=== PATIENT | female | born 1975 | race Caucasian/White ===

== ENCOUNTER → 2020-06-02 15:53 | Outpatient (CLI) | payer OTHER, SELFPAY ==
--- NOTE | 2020-06-02 15:56 | DI.RAD.S_ITS ---
PROCEDURE: XR SACROILIAC JOINT MIN 3V INDICATIONS: LBP with bilateral hip pain and poss radiculopathy, SIJ TTP TECHNIQUE: 3 views of the sacroiliac joints were acquired. COMPARISON: None. FINDINGS: Bones: No bony erosions or ankylosis. No suspicious bony lesions. No fractures. Soft tissues: Overlying bowel gas pattern is normal. No suspicious soft tissue densities. IMPRESSION: There is a slight degree of hip joint space narrowing, but not to the degree that definite osteoarthritis or prior trauma is found minimal degenerative osteoarthritic changes seen at the inferior aspect of each sacroiliac joint, symmetric, and there is no sign of ankylosis. No trauma found. Dictated by: Tejinder Jones M.D. on 06/02/2020 at 17:12 Approved by: Tejinder Jones M.D. on 06/02/2020 at 17:14
--- NOTE | 2020-06-02 15:56 | DI.RAD.S_ITS ---
PROCEDURE: XR LUMBAR SPINE MIN 4V INDICATIONS: LBP with bilateral hip pain and poss radiculopathy, SIJ TTP TECHNIQUE: 5 views of the lumbar spine were acquired, including bilateral oblique views. COMPARISON: None. FINDINGS: Bones: 5 nonrib-bearing vertebrae are present. There is straightening of normal lumbar curvature. Minimal multilevel degenerative disc space narrowing. There is trace retrolisthesis of L1 on L2, L2 on L3, L3 on L4. There is a slight wedged appearance of the superior endplate of L5 without priors available for comparison. No vertebral body compression fractures. No suspicious bony lesions. Soft tissues: Overlying bowel gas pattern is normal. No suspicious soft tissue calcifications. Oblique images: No pars defects. IMPRESSION: Slight deformity of the superior endplate at L5 of indeterminate age. Dictated by: Chaya Zapien M.D. on 06/02/2020 at 17:39 Approved by: Chaya Zapien M.D. on 06/02/2020 at 17:40
--- NOTE | 2020-06-02 15:56 | DI.RAD.S_ITS ---
PROCEDURE: XR HIP W PEL IF DONE GUILLE MIN 4V INDICATIONS: LBP with bilateral hip pain and poss radiculopathy, SIJ TTP TECHNIQUE: AP pelvis with lateral view(s) of the bilateral hip(s). COMPARISON: None. FINDINGS: Bones: No fractures or dislocations. Pelvic ring appears intact. No suspicious bony lesions. Soft tissues: The visualized bowel gas pattern is normal. No suspicious soft tissue calcifications. IMPRESSION: Mild hip joint osteoarthritis slightly greater on the right than the left. No acute trauma found. Dictated by: Tejinder Jones M.D. on 06/02/2020 at 17:46 Approved by: Tejinder Jones M.D. on 06/02/2020 at 17:46
== END ==
PROVIDERS: PCP Registered Nurse Diabetes Educator; Referring Provider Registered Nurse Diabetes Educator; Visit Provider Registered Nurse Diabetes Educator
DX: M54.5 Low back pain (principal); M25.551 Pain in right hip; M25.552 Pain in left hip; M16.0 Bilateral primary osteoarthritis of hip; G89.29 Other chronic pain
CPT/HCPCS: 72110; 72202; 73522

== ENCOUNTER → 2021-09-15 06:52 | Outpatient (CLI) | payer OTHER, SELFPAY ==
--- NOTE | 2021-09-15 06:53 | DI.MG.S_ITS ---
BILATERAL DIGITAL SCREENING MAMMOGRAM 3D/2D WITH CAD: 09/15/2021 CLINICAL: Routine screening. Comparison is made to exam dated: 05/24/2017 mammogram - outside location. The tissue of both breasts is heterogeneously dense. This may lower the sensitivity of mammography. Current study was also evaluated with a Computer Aided Detection (CAD) system. No significant masses, calcifications, or other findings are seen in either breast. There has been no significant interval change. IMPRESSION: NEGATIVE There is no mammographic evidence of malignancy. A 1 year screening mammogram is recommended. This exam was interpreted at Station ID: [id number]. NOTE: For mammograms, a report in lay terms will be sent to the patient. Approximately 15% of breast malignancies will not be visualized mammographically. In the management of a palpable breast mass, a negative mammogram must not discourage biopsy of a clinically suspicious lesion. Electronically Signed By: Reyes mondragon/mario:09/15/2021 09:33:51 letter sent: Normal Exam ACR BI-RADS Category 1: Negative [id number]
== END ==
PROVIDERS: PCP Registered Nurse Diabetes Educator; Referring Provider Registered Nurse Diabetes Educator; Visit Provider Registered Nurse Diabetes Educator
DX: Z12.31 Encounter for screening mammogram for malignant neoplasm of breast (principal)
CPT/HCPCS: 77063; 77067

== ENCOUNTER → 2021-09-15 06:54 | Outpatient (CLI) | payer OTHER, SELFPAY ==
--- NOTE | 2021-09-15 06:54 | DI.MRI.S_ITS ---
PROCEDURE: MR LUMBAR SPINE WO CON INDICATIONS: eval lumbosacral radiculopathy/LBP TECHNIQUE: Noncontrast sagittal T1 spin echo and T2 fast echo, sagittal STIR, and T2 fast spin echo through the lumbar spine. Oblique axial T2 weighted images were obtained through the lower lumbar spine. In cases with scoliosis, additional coronal T2 fast spin echo may be performed. COMPARISON: [facility], CR, XR LUMBAR SPINE MIN 4V, 06/02/2020, 16:07. [facility], CR, XR SACROILIAC JOINT MIN 3V, 06/02/2020, 16:07. FINDINGS: Image quality: Excellent. Alignment and Curvature: There is normal bony alignment. Bone Marrow: Marrow is of normal overall signal. No acute vertebral body compression fractures. Minimal posterior wedging is seen L5 vertebral body, as previously demonstrated. Spinal Cord: Conus medullaris terminates at the L1 level. Visualized cord demonstrates normal signal and size. Paraspinous Soft Tissues: No paravertebral masses. T12-L1: Normal appearance. L1-L2: Normal appearance. L2-L3: Normal appearance. L3-L4: Normal appearance. L4-L5: [id number] loss of disc height and disc signal can be seen. Mild to moderate disc bulge is seen. There is a superimposed central disc protrusion. There is a focal annular fissure seen posteriorly. Mild facet joint hypertrophy is seen. There is moderate right-sided and mild left-sided neural foraminal narrowing. Mild to moderate central canal narrowing is seen. L5-S1: The disc height and disk signal are well-preserved. Mild facet joint hypertrophy is seen. Mild bilateral neural foraminal narrowing is seen. The central canal is widely patent. IMPRESSION: Focal lower lumbar spine degenerative changes are seen, which are worst at the L4-L5 level. Dictated by: Fransisco Watson M.D. on 09/15/2021 at 9:39 Approved by: Fransisco Watson M.D. on 09/15/2021 at 9:42
== END ==
PROVIDERS: PCP Registered Nurse Diabetes Educator; Referring Provider Registered Nurse Diabetes Educator; Visit Provider Registered Nurse Diabetes Educator
DX: M47.26 Other spondylosis with radiculopathy, lumbar region (principal); M47.27 Other spondylosis with radiculopathy, lumbosacral region; M54.50 Low back pain, unspecified; G89.29 Other chronic pain
CPT/HCPCS: 72148

== ENCOUNTER → 2022-07-31 13:42 | Outpatient (CLI) | payer OTHER, SELFPAY ==
--- NOTE | 2022-07-31 14:14 | DI.MRI.S_ITS ---
PROCEDURE: MR LUMBAR SPINE WO CON INDICATIONS: Spinal stenosis, lumbar region with neurogenic claudication TECHNIQUE: Noncontrast sagittal T1 spin echo and T2 fast echo, sagittal STIR, and T2 fast spin echo through the lumbar spine. In cases with scoliosis, additional coronal T2 fast spin echo may be performed. COMPARISON: [facility], CR, XR LUMBAR SPINE WITH OBLIQUES PLUS FLEXION EXTENSION, 07/11/2022, 16:05. [facility], , MR LUMBAR SPINE WO CON, 09/15/2021, 7:04. FINDINGS: Image quality: Excellent. Alignment and Curvature: Transitional element at L5. There is loss of normal lumbar lordosis. Bone Marrow: Marrow is of normal overall signal. No acute vertebral body compression fractures. Mild reactive signal within the endplates adjacent to the L4-L5 intervertebral disc. Spinal Cord: Conus medullaris terminates at the L1-L2 disc space level. Visualized cord demonstrates normal signal and size. Paraspinous Soft Tissues: No paravertebral masses. T12-L1: Normal appearance. L1-L2: Normal appearance. L2-L3: Normal appearance. L3-L4: Normal appearance. L4-L5: Mild disc height loss and desiccation. Mild diffuse disc bulge with superimposed left paracentral protrusion. Mild facet and ligamentum flavum hypertrophy. Mild canal stenosis. Mild bilateral foraminal stenosis. No significant change. L5-S1: Mild bilateral facet hypertrophy. No significant canal stenosis. Mild bilateral foraminal stenosis. No significant change. IMPRESSION: 1. Multilevel degenerative disc and facet disease, as well as ligamentum flavum hypertrophy and epidural lipomatosis. 2. Mild multilevel canal and foraminal stenoses. No neural impingement. Dictated by: Iván Rodriguez M.D. on 07/31/2022 at 14:29 Transcribed by: VASQUEZ on 07/31/2022 at 14:31 Approved by: Iván Rodriguez M.D. on 07/31/2022 at 16:46
== END ==
PROVIDERS: PCP Registered Nurse Diabetes Educator; Referring Provider Physical Medicine & Rehabilitation Pain Medicine; Visit Provider Physical Medicine & Rehabilitation Pain Medicine
DX: M48.062 Spinal stenosis, lumbar region with neurogenic claudication (principal); M48.07 Spinal stenosis, lumbosacral region; M47.816 Spondylosis without myelopathy or radiculopathy, lumbar region; M47.817 Spondylosis without myelopathy or radiculopathy, lumbosacral region
CPT/HCPCS: 72148

== ENCOUNTER → 2023-03-29 14:58 | Outpatient (CLI) | payer OTHER, SELFPAY ==
--- NOTE | 2023-03-29 15:00 | DI.MG.S_ITS ---
BILATERAL DIGITAL SCREENING MAMMOGRAM 3D/2D WITH CAD: 03/29/2023 CLINICAL: Routine screening. Comparison is made to exams dated: 09/15/2021 mammogram - [facility] and 05/24/2017 mammogram - outside location. Both breasts are heterogeneously dense, which may obscure small masses (category c / 51-75% glandular tissue). Current study was also evaluated with a Computer Aided Detection (CAD) system. No significant masses, calcifications, or other findings are seen in either breast. There has been no significant interval change. IMPRESSION: NEGATIVE There is no mammographic evidence of malignancy. A 1 year screening mammogram is recommended. Based on the Tyrer Cuzick model (a risk assessment model) the patient's lifetime risk is 12.7% and her 10 year risk is 2.5%. According to the ACR, ACS, and NCCN guidelines, an annual breast MRI exam along with mammogram is recommended if the patient's lifetime risk is 20% or greater. This exam was interpreted at Station ID: [id number]. NOTE: For mammograms, a report in lay terms will be sent to the patient. Approximately 15% of breast malignancies will not be visualized mammographically. In the management of a palpable breast mass, a negative mammogram must not discourage biopsy of a clinically suspicious lesion. Electronically Signed By: Reece barahona/mario:03/30/2023 10:01:17 letter sent: Normal Exam ACR BI-RADS Category 1: Negative 3341F
== END ==
PROVIDERS: PCP Registered Nurse Diabetes Educator; Referring Provider Registered Nurse Diabetes Educator; Visit Provider Registered Nurse Diabetes Educator
DX: Z12.31 Encounter for screening mammogram for malignant neoplasm of breast (principal)
CPT/HCPCS: 77063; 77067

== ENCOUNTER → 2024-10-07 12:03 | Outpatient (CLI) | payer OTHER, SELFPAY ==
--- NOTE | 2024-10-07 12:04 | DI.RAD.S_ITS ---
PROCEDURE: XR FOOT RT 2V INDICATIONS: eval bilateral heel pain TECHNIQUE: Two views of the right foot were acquired. COMPARISON: None. FINDINGS: Bones: There are no osseous abnormalities Joints: The joint spaces are normal in width and alignment without arthritic change. Soft tissues: Moderate plantar tendon calcification on the calcaneus noted. Plantar soft tissue swelling over the hindfoot noted IMPRESSION: Plantar soft tissues over the hindfoot likely edema Other chronic findings as described Dictated by: Jr Greene M.D. on 10/08/2024 at 11:29 Approved by: Jr Greene M.D. on 10/08/2024 at 11:30
--- NOTE | 2024-10-07 12:04 | DI.RAD.S_ITS ---
PROCEDURE: XR FOOT LT 2V INDICATIONS: eval bilateral heel pain TECHNIQUE: Two views of the left foot were acquired. COMPARISON: [facility], CR, XR FOOT RT 2V, 10/07/2024, 11:22. FINDINGS: Bones: Mild pes planus and slight hammertoe deformities 2nd through 5th digits noted. Enlarged of the medial navicular noted Joints: The joint spaces are normal in width and alignment without arthritic change. Soft tissues: Mild plantar soft tissue swelling noted IMPRESSION: Chronic findings as described. Dictated by: Jr Greene M.D. on 10/08/2024 at 11:30 Approved by: Jr Greene M.D. on 10/08/2024 at 11:32
== END ==
PROVIDERS: PCP Registered Nurse Diabetes Educator; Referring Provider Registered Nurse Diabetes Educator; Visit Provider Registered Nurse Diabetes Educator
DX: Z00.00 Encounter for general adult medical examination without abnormal findings (principal); Z86.32 Personal history of gestational diabetes; M65.871 Other synovitis and tenosynovitis, right ankle and foot; M79.89 Other specified soft tissue disorders; M21.42 Flat foot [pes planus] (acquired), left foot
CPT/HCPCS: 73620

== ENCOUNTER → 2024-10-28 10:51 | Outpatient (CLI) | payer OTHER, SELFPAY ==
[2024-10-28 11:15] LABS: Hematocrit 41.4 % (36-46); Hemoglobin 14.3 g/dL (12.0-16.0); Mean Corpuscular HGB Conc 34.7 % (30-36); Mean Corpuscular Hemoglobin 29.4 PG (26-34); Mean Corpuscular Volume 84.8 fL (80-100); Platelet Count 222 X10^3/uL (150-400)
[2024-10-28 11:47] LABS: Alanine Aminotransferase 16 IU/L (<35); Albumin 4.5 g/dL (3.5-5.0); Albumin Globulin Ratio 1.7 (1.0-2.8); Alkaline Phosphatase 63 U/L (38-126); Blood Urea Nitrogen 16 mg/dL (7-17); Calcium 9.5 mg/dL (8.4-10.2); Carbon Dioxide 22 mmol/L (22-32); Chloride 107 mmol/L (98-107); Cholesterol 221 mg/dL (140-199); Estimated Glomerular Filt Rate > 60 mL/min (>60); Globulin 2.6 g/dL (1.7-4.1); Glucose 91 mg/dL (70-99); HDL Cholesterol 51 mg/dL (40-60); HEMOLYSIS < 15 (0-50); Potassium 4.1 mmol/L (3.4-5.1); Sodium 140 mmol/L (137-145); Total Protein 7.1 g/dL (6.3-8.2); Triglycerides 102 mg/dL (35-150)
[2024-10-28 11:50] LABS: Hemoglobin A1C% w Est Avg Glu 5.3 % (4.0-6.0)
[2024-10-28 12:17] LABS: TSH w/ Reflex to FT4 1.09 uIU/mL (0.47-4.68)
== END ==
PROVIDERS: PCP Registered Nurse Diabetes Educator; Referring Provider Registered Nurse Diabetes Educator; Visit Provider Registered Nurse Diabetes Educator
DX: Z86.32 Personal history of gestational diabetes (principal); Z00.00 Encounter for general adult medical examination without abnormal findings
CPT/HCPCS: 36415; 80053; 80061; 83036; 84443; 85027

== ENCOUNTER → 2024-10-28 12:55 | Outpatient (CLI) | payer OTHER, SELFPAY ==
--- NOTE | 2024-10-28 12:56 | DI.MG.S_ITS ---
MM screening mammo BI: 10/28/2024. BI-RADS: 1 CLINICAL: 49-year old female for bilateral screening mammogram. Tyrer-Cuzick lifetime risk of 10.2%. No personal or first-degree family history of breast cancer. PRIOR EXAMS 03/29/2023, 09/15/2021. MAMMOGRAPHY TECHNIQUE: 2D and 3D (tomosynthesis) digital mammographic views obtained, with additional images as needed for full coverage. Current study was also evaluated with a Computer Aided Detection (CAD) system. DENSITY C. The breasts are heterogeneously dense, which may obscure small masses. MAMMOGRAPHY FINDINGS Bilateral: No suspicious mass, asymmetry, microcalcification, or other abnormality seen. No significant change from comparison. IMPRESSION: * No evidence of malignancy. RECOMMENDATIONS Bilateral * Annual screening mammography. OVERALL ASSESSMENT CATEGORY BI-RADS-1: Negative. The [employer] recommends annual screening mammography beginning at age 40 for women with average risk of breast cancer. ELECTRONICALLY SIGNED: Annie Berry M.D. on 10/28/2024 at 05:38:43 PM PT Interpreting Station ID: [id number]
== END ==
PROVIDERS: PCP Registered Nurse Diabetes Educator; Referring Provider Registered Nurse Diabetes Educator; Visit Provider Registered Nurse Diabetes Educator
DX: Z12.31 Encounter for screening mammogram for malignant neoplasm of breast (principal); R92.333 Mammographic heterogeneous density, bilateral breasts
CPT/HCPCS: 77063; 77067